=== PATIENT | male | born 1975 | race American Indian/Alaskan Native ===

== ENCOUNTER 2017-01-09 14:10 | Emergency (ER) | payer MEDICAID, MEDICARE, OTHER ==
[2017-01-09 14:11] VITALS: BMI 27.1
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
[2017-01-09 15:01] VITALS: BP 110/75; PULSE 83; RESP 18; TEMP 98.1; O2SAT 97
== END 2017-01-09 15:35 | disposition home or self-care (01) ==
LOC: ED 14:10
DX: F25.9 Schizoaffective disorder, unspecified (principal); F19.10 Other psychoactive substance abuse, uncomplicated

== ENCOUNTER 2017-12-16 22:17 | Emergency (ER) | payer MEDICAID, MEDICARE, OTHER ==
[2017-12-16 22:17] VITALS: BMI 27.1
[2017-12-16 22:29] VITALS: RESP 18; TEMP 98.1
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
[2017-12-16 23:35] LABS: BASO # 0.02 K/mm3 (0.0-2.0); BASO % 0.3 % (0.0-3.0); EOS % 0.3 % (1.5-5.0); GRAN # 4.03 (1.4-6.5); GRAN % 54.9 % (50.0-68.0); HEMOGLOBIN 15.7 g/dL (14.0-18.0); LYMPH # 2.6 (1.2-3.4); MEAN CORPUSCULAR HEMOGLOBIN 27.4 pg (25.0-35.0); MEAN PLATELET VOLUME 11.1 fl (7.0-11.0); MONO # 0.7 (0.1-0.6); MONO % 9.5 % (1.0-6.0); RBC 5.74 10^6/uL (3.5-6.1); RED CELL DISTRIBUTION WIDTH 13.7 % (11.5-14.5); WHITE BLOOD COUNT 7.3 10^3/ul (4.5-11.0)
[2017-12-16 23:48] LABS: ACETAMINOPHEN < 10.0 ug/ml (10.0-20.0); SALICYLATE < 1 mg/dL (2.0-20.0)
[2017-12-16 23:49] LABS: ALB/GLOB RATIO 1.2 (1.1-1.8); ALBUMIN 4.7 g/dL (3.0-4.8); ALT/SGPT 34 U/L (7-56); AST/SGOT 37 U/L (17-59); BLOOD UREA NITROGEN 12 mg/dL (7-21); GFR AFRICAN-AMERICAN > 60; GFR NON-AFRICAN AMERICAN > 60
[2017-12-17 00:44] LABS: URINE BILIRUBIN NEGATIVE (NEGATIVE); URINE BLOOD NEGATIVE (NEGATIVE); URINE GLUCOSE (UA) NEGATIVE (NEGATIVE); URINE LEUKOCYTE ESTERASE NEGATIVE Leu/uL (NEGATIVE); URINE PROTEIN NEGATIVE mg/dL (<30 mg/dL); URINE UROBILINOGEN 0.2 E.U./dL (<1 E.U./dL)
[2017-12-17 00:50] LABS: URINE APPEARANCE CLEAR (CLEAR); URINE COLOR YELLOW (YELLOW)
[2017-12-17 06:15] VITALS: BP 132/88; PULSE 89
[2017-12-17 06:17] VITALS: O2SAT 99
--- NOTE | 2017-12-17 07:31 | RAD ---
Date of service: 12/17/2017 HISTORY: medical screening COMPARISON: No prior. FINDINGS: LUNGS: No active pulmonary disease. PLEURA: No significant pleural effusion identified, no pneumothorax apparent. CARDIOVASCULAR: Normal. OSSEOUS STRUCTURES: No significant abnormalities. VISUALIZED UPPER ABDOMEN: Normal. OTHER FINDINGS: None. IMPRESSION: No active disease.
--- NOTE | 2017-12-17 09:36 | CARD ---
APPROVED REPORT Date of service: 12/16/2017 EKG Measurement Heart [id number] <Conclusion> Normal sinus rhythm Normal ECG
== END 2017-12-17 06:15 | disposition home or self-care (01) ==
LOC: ED 22:17
DX: F25.9 Schizoaffective disorder, unspecified (principal); F31.9 Bipolar disorder, unspecified
CPT/HCPCS: 71045; 80053; 81003; 85025; 90791; 93005; 99283; G0480

== ENCOUNTER 2018-01-18 15:55 | Emergency (ER) | payer OTHER ==
[2018-01-18 15:55] VITALS: BMI 27.1
[2018-01-18 16:29] VITALS: TEMP 99
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
--- NOTE | 2018-01-18 18:02 | RAD ---
Date of service: 01/18/2018 PROCEDURE: Radiographs of the Lumbar Spine. HISTORY: back pain COMPARISON: No prior. FINDINGS: BONES: Normal alignment. No listhesis. No fracture. DISC SPACES: Mild narrowing of the disc is space at L4-L5 and L5-S1 noted. Mild degenerative changes at L4-L5 are also noted. OTHER FINDINGS: None. IMPRESSION: No evidence of acute fracture or subluxation. Mild spondylosis at the lower lumbar spine associated with mild narrowing of the intervertebral disc spaces of L4-L5 and L5-S1.
[2018-01-18 18:42] VITALS: BP 144/87; PULSE 86; RESP 16; O2SAT 99
== END 2018-01-18 18:44 | disposition home or self-care (01) ==
LOC: ED 15:55
DX: M54.30 Sciatica, unspecified side (principal); F20.9 Schizophrenia, unspecified; F17.210 Nicotine dependence, cigarettes, uncomplicated
CPT/HCPCS: 72110; 96372; 99283; J1885

== ENCOUNTER 2018-02-26 09:39 | Emergency (ER) | payer MEDICAID, OTHER ==
[2018-02-26 10:08] VITALS: BMI 28.5
[2018-02-26 10:10] VITALS: TEMP 98.5
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
[2018-02-26 12:52] VITALS: BP 131/77; PULSE 89; RESP 16; O2SAT 99
== END 2018-02-26 12:16 | disposition home or self-care (01) ==
LOC: ED 09:39
DX: Z76.0 Encounter for issue of repeat prescription (principal); F99 Mental disorder, not otherwise specified

== ENCOUNTER 2018-03-06 08:49 | Emergency (ER) | payer OTHER, MEDICAID ==
[2018-03-06 08:57] VITALS: BMI 32.5
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
[2018-03-06 09:44] LABS: BASO # 0.02 K/mm3 (0.0-2.0); BASO % 0.3 % (0.0-3.0); EOS % 0.5 % (1.5-5.0); GRAN # 3.75 (1.4-6.5); GRAN % 64.9 % (50.0-68.0); HEMOGLOBIN 13.5 g/dL (14.0-18.0); LYMPH # 1.4 (1.2-3.4); LYMPH % 23.4 % (22.0-35.0); MEAN CELL VOLUME 80.2 fl (80.0-105.0); MEAN CORPUSCULAR HEMOGLOBIN 27.6 pg (25.0-35.0); MEAN CORPUSCULAR HGB CONC 34.4 g/dl (31.0-37.0); MEAN PLATELET VOLUME 10.1 fl (7.0-11.0); MONO # 0.6 (0.1-0.6); MONO % 10.9 % (1.0-6.0); RBC 4.89 10^6/uL (3.5-6.1); RED CELL DISTRIBUTION WIDTH 14.2 % (11.5-14.5); WHITE BLOOD COUNT 5.8 10^3/ul (4.5-11.0)
[2018-03-06 09:53] LABS: ALB/GLOB RATIO 1.2 (1.1-1.8); ALBUMIN 3.7 g/dL (3.0-4.8); BLOOD UREA NITROGEN 14 mg/dL (7-21); CALCIUM 8.9 mg/dL (8.4-10.5); GFR NON-AFRICAN AMERICAN > 60
[2018-03-06 09:54] LABS: ACETAMINOPHEN < 10.0 ug/ml (10.0-20.0); SALICYLATE < 1 mg/dL (2.0-20.0)
[2018-03-06 09:55] LABS: ALT/SGPT 58 U/L (7-56); AST/SGOT 126 U/L (17-59)
[2018-03-06] MEDS ORDERED: Sodium Chloride 0.9% 2,000 ML IV ONE (10:11)
[2018-03-06 10:26] LABS: CK MB% 0.4 % (2.5-3.0); CK-MB 11.9 ng/mL (0.0-3.6)
--- NOTE | 2018-03-06 10:30 | RAD ---
Date of service: 03/06/2018 HISTORY: pes COMPARISON: 12/17/2017. FINDINGS: LUNGS: No active pulmonary disease. PLEURA: No significant pleural effusion identified, no pneumothorax apparent. CARDIOVASCULAR: No atherosclerotic calcification present No radiographic findings to suggest acute or significant cardiovascular disease. OSSEOUS STRUCTURES: No significant abnormalities. VISUALIZED UPPER ABDOMEN: Normal. OTHER FINDINGS: None. IMPRESSION: No active disease. No significant interval change compared to the prior examination(s).
[2018-03-06 10:58] LABS: URINE BILIRUBIN NEGATIVE (NEGATIVE); URINE BLOOD NEGATIVE (NEGATIVE); URINE GLUCOSE (UA) NEGATIVE (NEGATIVE); URINE LEUKOCYTE ESTERASE NEGATIVE Leu/uL (NEGATIVE); URINE PROTEIN NEGATIVE mg/dL (<30 mg/dL)
[2018-03-06 10:59] LABS: URINE APPEARANCE CLEAR (CLEAR); URINE COLOR YELLOW (YELLOW)
[2018-03-06 11:20] LABS: BARBITURATES, UR NEGATIVE (NEGATIVE); BENZODIAZEPINES, UR NEGATIVE (NEGATIVE); OPIATES, UR NEGATIVE (NEGATIVE); PHENCYCLIDINE, UR POSITIVE (NEGATIVE)
[2018-03-06 11:56] VITALS: BP 130/80; PULSE 91; RESP 18; TEMP 98; O2SAT 98
--- NOTE | 2018-03-06 15:13 | CARD ---
APPROVED REPORT Date of service: 03/06/2018 EKG Measurement Heart [id number] <Conclusion> Normal sinus rhythm Normal ECG
== END 2018-03-06 11:56 | disposition left against medical advice (07) ==
LOC: ED 08:49
DX: F25.0 Schizoaffective disorder, bipolar type (principal); M62.82 Rhabdomyolysis; F16.20 Hallucinogen dependence, uncomplicated; F16.99 Hallucinogen use, unspecified with unspecified hallucinogen-induced disorder; F17.210 Nicotine dependence, cigarettes, uncomplicated; Z59.0 Homelessness
CPT/HCPCS: 71045; 80053; 81003; 82550; 82553; 83735; 85025; 90791; 93005; 99282; G0480; J7040

== ENCOUNTER 2018-03-12 23:21 | Emergency (ER) | payer OTHER ==
[2018-03-13 00:38] VITALS: BMI 25.8
[2018-03-13 01:05] VITALS: BP 133/73; PULSE 85; RESP 16; TEMP 98.5; O2SAT 100
== END 2018-03-13 04:29 | disposition left against medical advice (07) ==
LOC: ED 23:21
DX: Z02.89 Encounter for other administrative examinations (principal)

== ENCOUNTER 2018-04-12 11:14 | Emergency (ER) | payer MEDICAID, OTHER ==
[2018-04-12 11:19] VITALS: BMI 24.4
[2018-04-12 11:23] VITALS: BP 136/84; PULSE 76; RESP 18; TEMP 98.6; O2SAT 99
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
== END 2018-04-12 11:47 | disposition home or self-care (01) ==
LOC: ED 11:14
DX: Z76.0 Encounter for issue of repeat prescription (principal); F20.9 Schizophrenia, unspecified

== ENCOUNTER 2018-04-24 12:10 | Emergency (ER) | payer OTHER ==
[2018-04-24 12:10] VITALS: BMI 24.4
[2018-04-24 12:27] VITALS: BP 132/89; PULSE 78; RESP 18; TEMP 98.2; O2SAT 98
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
== END 2018-04-24 13:12 | disposition home or self-care (01) ==
LOC: ED 12:10
DX: Z04.89 Encounter for examination and observation for other specified reasons (principal); F41.9 Anxiety disorder, unspecified; F31.9 Bipolar disorder, unspecified; F20.9 Schizophrenia, unspecified

== ENCOUNTER 2018-05-01 23:17 | Emergency (ER) | payer OTHER ==
[2018-05-01 23:18] VITALS: BMI 24.4
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
[2018-05-01 23:31] VITALS: BP 141/69; PULSE 84; RESP 18; TEMP 97.7; O2SAT 97
== END 2018-05-01 23:55 | disposition home or self-care (01) ==
LOC: ED 23:17
DX: G89.29 Other chronic pain (principal); M54.5 Low back pain; F17.210 Nicotine dependence, cigarettes, uncomplicated; F20.9 Schizophrenia, unspecified

== ENCOUNTER 2018-05-03 23:11 | Emergency (ER) | payer OTHER ==
[2018-05-03 23:11] VITALS: BMI 24.4
== END 2018-05-03 23:21 | disposition left against medical advice (07) ==
LOC: ED 23:11
DX: Z02.89 Encounter for other administrative examinations (principal); M54.9 Dorsalgia, unspecified

== ENCOUNTER 2018-06-17 06:20 | Emergency (ER) | payer OTHER, MEDICARE ==
[2018-06-17 06:20] VITALS: BMI 24.4
[2018-06-17 07:22] LABS: BASO # 0.02 K/mm3 (0.0-2.0); BASO % 0.4 % (0.0-3.0); EOS % 0.9 % (1.5-5.0); HEMOGLOBIN 14.4 g/dL (14.0-18.0); LYMPH # 1.4 (1.2-3.4); LYMPH % 31.6 % (22.0-35.0); MEAN CELL VOLUME 80.5 fl (80.0-105.0); MEAN CORPUSCULAR HEMOGLOBIN 27.5 pg (25.0-35.0); MEAN CORPUSCULAR HGB CONC 34.1 g/dl (31.0-37.0); MEAN PLATELET VOLUME 10.3 fl (7.0-11.0); MONO # 0.7 (0.1-0.6); MONO % 15.6 % (1.0-6.0); RBC 5.24 10^6/uL (3.5-6.1); RED CELL DISTRIBUTION WIDTH 14.1 % (11.5-14.5); WHITE BLOOD COUNT 4.6 10^3/uL (4.5-11.0)
[2018-06-17 07:27] VITALS: RESP 18; TEMP 98.2
[2018-06-17 07:35] LABS: ACETAMINOPHEN < 10.0 ug/ml (10.0-20.0); ALB/GLOB RATIO 1.1 (1.1-1.8); ALBUMIN 4.2 g/dL (3.0-4.8); ALT/SGPT 60 U/L (7-56); AST/SGOT 68 U/L (17-59); BLOOD UREA NITROGEN 14 mg/dL (7-21); CALCIUM 9.5 mg/dL (8.4-10.5); GFR NON-AFRICAN AMERICAN > 60; SALICYLATE < 1 mg/dL (2.0-20.0)
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
--- NOTE | 2018-06-17 07:57 | RAD ---
Date of service: 06/17/2018 HISTORY: psych clearance COMPARISON: No prior. FINDINGS: LUNGS: No active pulmonary disease. Mid right lateral pulmonary granulomata again appreciated. PLEURA: No significant pleural effusion identified, no pneumothorax apparent. CARDIOVASCULAR: No aortic atherosclerotic calcification present. Normal cardiac size. No pulmonary vascular congestion. OSSEOUS STRUCTURES: No significant abnormalities. VISUALIZED UPPER ABDOMEN: Normal. OTHER FINDINGS: None. IMPRESSION: No interval acute cardiopulmonary disease appreciated.
--- NOTE | 2018-06-17 09:52 | CARD ---
APPROVED REPORT Date of service: 06/17/2018 EKG Measurement Heart [id number] <Conclusion> Normal sinus rhythm High Voltage - LVH.
[2018-06-17 10:04] VITALS: BP 121/77; PULSE 82; O2SAT 99
== END 2018-06-17 10:06 | disposition home or self-care (01) ==
LOC: ED 06:20
DX: F19.10 Other psychoactive substance abuse, uncomplicated (principal); F29 Unspecified psychosis not due to a substance or known physiological condition; F17.210 Nicotine dependence, cigarettes, uncomplicated
CPT/HCPCS: 71045; 80053; 85025; 93005; 99283; G0480

== ENCOUNTER 2018-07-10 10:18 | Emergency (ER) | payer MEDICARE, OTHER ==
[2018-07-10 10:27] VITALS: RESP 18; O2SAT 98
[2018-07-10] MEDS ORDERED: TDAP Vaccine 0.5 mL Syr IM ONE (10:30)
[2018-07-10] MEDS ORDERED: Lidocaine 1% Inj (20ml) IJ STA (10:30)
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
[2018-07-10 10:39] VITALS: BMI 44.7
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
[2018-07-10] MEDS ORDERED: Bacitracin 500 Units/gm Oint Foilpak UD TOP ONE (13:08)
[2018-07-10 13:17] VITALS: BP 140/78; PULSE 80; TEMP 98
== END 2018-07-10 13:17 | disposition home or self-care (01) ==
LOC: ED 10:18
DX: S01.81XA Laceration without foreign body of other part of head, initial encounter (principal); Y04.0XXA Assault by unarmed brawl or fight, initial encounter; F17.210 Nicotine dependence, cigarettes, uncomplicated; F20.9 Schizophrenia, unspecified; Z23 Encounter for immunization

== ENCOUNTER 2018-07-14 11:17 | Emergency (ER) | payer OTHER ==
[2018-07-14 11:17] VITALS: BMI 44.7
== END 2018-07-14 11:54 | disposition left against medical advice (07) ==
LOC: ED 11:17
DX: Z02.89 Encounter for other administrative examinations (principal); Z00.00 Encounter for general adult medical examination without abnormal findings

== ENCOUNTER 2018-07-26 00:18 | Inpatient (IN) | payer OTHER ==
[2018-07-26 00:48] VITALS: BMI 33.5
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
[2018-07-26 02:31] LABS: HEMOGLOBIN 13.5 g/dL (14.0-18.0); MEAN CELL VOLUME 81.1 fl (80.0-105.0); MEAN CORPUSCULAR HEMOGLOBIN 27.2 pg (25.0-35.0); MEAN CORPUSCULAR HGB CONC 33.5 g/dl (31.0-37.0); MEAN PLATELET VOLUME 10.5 fl (7.0-11.0); RBC 4.97 10^6/uL (3.5-6.1); RED CELL DISTRIBUTION WIDTH 14.1 % (11.5-14.5); WHITE BLOOD COUNT 7.8 10^3/uL (4.5-11.0)
[2018-07-26 02:49] LABS: ALB/GLOB RATIO 1.1 (1.1-1.8); ALT/SGPT 41 U/L (7-56); AST/SGOT 53 U/L (17-59); BLOOD UREA NITROGEN 18 mg/dL (7-21); CALCIUM 9.1 mg/dL (8.4-10.5); GFR NON-AFRICAN AMERICAN > 60
--- NOTE | 2018-07-26 07:01 | ED PDOC ---
Physical Exam Vital Signs Temp Pulse Resp BP Pulse Ox 07/26/18 03:00 97.9 F 89 16 138/72 95 07/26/18 00:48 98.1 F 91 H 18 146/80 95 Medical Decision Making ED Course and Treatment: 07/26/18 07:[address] Eaton with patient pending face to face e valuation by Dr. Lynn(psychiatry). 07/26/18 08:54 Dr. Lynn completes her evaluation of patient and accepts patient onto inpatient psychiatric admission under schizoaffective disorder. - Lab Interpretations Lab Results: Total Bilirubin 0.4 mg/dL (0.2-1.3) 07/26/18 02:18 AST 53 U/L (17-59) 07/26/18 02:18 ALT 41 U/L (7-56) 07/26/18 02:18 Alkaline Phosphatase 98 U/L (38-126) 07/26/18 02:18 Total Protein 7.6 g/dL (5.8-8.3) 07/26/18 02:18 Albumin 4.0 g/dL (3.0-4.8) 07/26/18 02:18 Globulin 3.6 gm/dL 07/26/18 02:18 Albumin/Globulin Ratio 1.1 (1.1-1.8) 07/26/18 02:18 - RAD Interpretation Radiology Orders: 07/26/18 01:32 CHEST PORTABLE [RAD] Stat Disposition/Present on Arrival - Present on Arrival Any Indicators Present on Arrival: No History of DVT/PE: No History of Uncontrolled Diabetes: No Urinary Catheter: No History of Decub. Ulcer: No History Surgical Site Infection Following: None - Disposition Have Diagnosis and Disposition been Completed?: Yes Diagnosis: Schizoaffective disorder, bipolar type, Substance-induced psychotic disorder Disposition: HOSPITALIZED Disposition Time: 08:52 Patient Plan: Admission Patient Problems: Current Active Problems Problem Status Onset Schizoaffective disorder, bipolar type Acute Condition: FAIR Forms: [employer] (Ugandan)
[2018-07-26] MEDS: OLANZapine 5 mg Disintegrating Tab PO SCH ×3 (08:52→21:29)
[2018-07-26 09:18] LABS: BARBITURATES, UR NEGATIVE (NEGATIVE); BENZODIAZEPINES, UR NEGATIVE (NEGATIVE); OPIATES, UR NEGATIVE (NEGATIVE); PHENCYCLIDINE, UR POSITIVE (NEGATIVE)
--- NOTE | 2018-07-26 09:36 | RAD ---
Date of service: 07/26/2018 HISTORY: Medical clearance COMPARISON: Comparison chest 06/17/2018. FINDINGS: LUNGS: Minor bibasilar atelectasis PLEURA: No significant pleural effusion identified, no pneumothorax apparent. CARDIOVASCULAR: No aortic atherosclerotic calcification present. Heart size upper limits of normal. no pulmonary vascular congestion. OSSEOUS STRUCTURES: No significant abnormalities. VISUALIZED UPPER ABDOMEN: Normal. OTHER FINDINGS: None. IMPRESSION: Minor bibasilar atelectasis.
--- NOTE | 2018-07-26 09:43 | CARD ---
APPROVED REPORT Date of service: 07/26/2018 EKG Measurement Heart [id number] <Conclusion> Normal sinus rhythm Normal ECG
[2018-07-26 10:16] VITALS: O2SAT 97
[2018-07-26] MEDS ORDERED: Alum-Mag Hydrox-Simethicone Susp (30 mL) PO PRN (12:04)
[2018-07-26] MEDS ORDERED: Magnesium Hydroxide Susp 30 ml UD PO PRN (12:05)
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
--- NOTE | 2018-07-26 15:46 | CON ---
DATE OF CONSULTATION: 07/26/2018 HISTORY OF PRESENT ILLNESS: In short, the patient is a 43-year-old -[place] male with a reported history of schizoaffective disorder, history of polysubstance abuse and dependence. The patient had multiple hospitalizations into the psychiatric inpatient unit, most recent was in 2017, under Dr. Chun's service. The patient came by himself to the emergency room overnight requesting psychiatric evaluation. In the emergency room, the patient presented to be bizarre, disorganized, irrational. The patient was refusing to give urinalysis. The patient was requesting to talk to this typewriter ribbon winder and said that he will provide history only to this typewriter ribbon winder. The patient was started on one to one by psychiatrist on-call. This typewriter ribbon winder saw the patient in the emergency room during morning round. This typewriter ribbon winder is very familiar with this patient from the previous multiple psychiatric admissions. The patient has chronic noncompliance with the medications and followup appointments. The patient has a history of incarcerations. The patient has history of being on probation and was on parole and had telecommunications officer in the past. The patient was doing well on Zyprexa in the past as well as mood stabilizers. The patient presented to be disorganized in the emergency room, flight of ideas. The patient was not able to provide a decent history. The patient was saying that he is changing his language in order for this typewriter ribbon winder to understand him better. The patient was saying fragments of Serbian, Kiswahili. The patient was saying Talha Win, like this typewriter ribbon winder is aware that the patient cannot speak Serbian or Kiswahili. The patient was saying then " , I can see shadows," then started to sing loudly in the emergency room. The patient agreed to give urine sample, and at present moment, urine drug screen is pending. The patient said that he lives in [place], and he came over way to come here because he feels comfortable in [place]. The patient said that he was not taking any medications for the past year or so. The patient said "you can give me any medications what you were giving me before, I will take it." At the same time, the patient was screaming out loudly alternating with singing song. PHYSICAL EXAMINATION: VITAL SIGNS: Reviewed. Temperature 97.9, pulse is 89, blood pressure 138/72, respirations 16, oxygen saturation is 95. MEDICATIONS: Reviewed. This typewriter ribbon winder is going to provide Zyprexa to him. LABORATORY DATA: Labs reviewed. Toxicology, alcohol negative. PREVIOUS HISTORY: The patient was in [place] on 07/21/2018 for medical clearance. The patient was under back then. The patient was in [facility] Room on 07/14/2018 for substance abuse, and before that, on 07/14/2018, the patient was in the emergency room here in [place]. MENTAL STATUS EXAMINATION: As this typewriter ribbon winder mentioned above, the patient presented to be disorganized, loud, tall muscle build gentleman, -[place], very poor hygiene. The patient is malodorous. The patient has multiple tattoos on his body. Intense eye contact. Speech was overproductive, loud. Thought process disorganized. Thought content, the patient presented to be psychotic, agitated, loud, obviously is seeing things and hearing things, disorganized thoughts and behavior. The patient denied thoughts of harming himself or others. Denied intent or plan. Insight and judgment seemed to be very limited. Impulses are unpredictable. IMPRESSION: The patient has a history of schizoaffective disorder, polysubstance abuse and dependence. The patient has history of PCP use. PLAN: This typewriter ribbon winder will start Zyprexa. From the emergency room, the patient took medication from the nurse. Urine drug screen needs to be obtained, and collateral information should be obtained from the patient's mother. The patient said that he has an apartment [address], and he came from [place]. Meanwhile, the patient signed consent for treatment. This typewriter ribbon winder will resume medications, most likely it would be Zyprexa as well as Depakote and small dose of benzodiazepines with a plan to wean it off. The patient will be admitted for further evaluation and observation. Should you have any questions give me a call back. Leah Dorman MD
[2018-07-26] MEDS: Divalproex 500 mg DR(BID formulation) PO SCH ×2 (18:29→21:29)
[2018-07-27 08:31] LABS: GLUCOSE,FASTING 92 mg/dL (65-110); HDL CHOLESTEROL 41 mg/dL (29-60)
[2018-07-27 08:44] LABS: LDL CHOLESTEROL 68 mg/dL (0-129)
[2018-07-27 08:48] LABS: FREE T4 1.07 ng/dL (0.78-2.19)
[2018-07-27] MEDS: OLANZapine 5 mg Disintegrating Tab PO SCH ×3 (09:41→21:42)
[2018-07-27] MEDS: Divalproex 500 mg DR(BID formulation) PO SCH ×3 (09:42→21:41)
[2018-07-28] MEDS: Divalproex 500 mg DR(BID formulation) PO SCH ×3 (08:28→21:57)
[2018-07-28] MEDS: OLANZapine 5 mg Disintegrating Tab PO SCH ×3 (08:28→21:57)
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
--- NOTE | 2018-07-28 13:53 | PCM.PYCHPN ---
Psychiatric Progress Note - Psychiatric Progress Note Patient seen today, length of contact: 30min Patient Chief Complaint: "I am just fine, I am alright,yeeyad yea, you can let me go home...I am alright I can move around....." Problems Identified/Issues Discussed: Risk/benefits and alternatives of medications discussed, suicide/ homicide prevention, past psychiatric h/o, current psychiatric symptoms, medical problems, risk/benefits and alternatives of medications, medications compliance, coping strategies, substance abuse h/o, relapse prevention, importance of follow up with psychiatrist and therapist, discharge plan. Medical Problems: Patient denied any issues, patient denied any pain or any concerns. pt was medically cleared from the ED. Diagnostic Results: 07/26/18 02:18 07/26/18 02:18 Lab Results 07/27/18 08:00: RPR Nonreactive 07/27/18 08:00: Free T4 1.07, TSH 3rd Generation 0.38 L 07/27/18 08:00: Fasting Glucose 92, Triglycerides 50, Cholesterol 135, LDL Cholesterol Direct 68, HDL Cholesterol 41 07/26/18 08:50: Urine Opiates Screen Negative, Urine Methadone Screen Negative, Ur Barbiturates Screen Negative, Ur Phencyclidine Scrn Positive H, Ur Amphetamines Screen Negative, U Benzodiazepines Scrn Negative, U Oth Cocaine Metabols Negative, U Cannabinoids Screen Negative 07/26/18 02:18: WBC 7.8 D, RBC 4.97, Hgb 13.5 L, Hct 40.3 L, MCV 81.1, MCH 27.2, MCHC 33.5, RDW 14.1, Plt Count 204, MPV 10.5 07/26/18 02:18: Alcohol, Quantitative < 10 07/26/18 02:18: Sodium 137, Potassium 4.2, Chloride 105, Carbon Dioxide 25, Anion Gap 11, BUN 18, Creatinine 0.7 L, Est GFR ( Amer) > 60, Est GFR (Non-Af Amer) > 60, Random Glucose 93, Calcium 9.1, Total Bilirubin 0.4, AST 53, ALT 41, Alkaline Phosphatase 98, Total Protein 7.6, Albumin 4.0, Globulin 3.6, Albumin/Globulin Ratio 1.1 Vital Signs Temp Pulse Pulse Pulse Resp BP Pulse Ox 07/26/18 16:00 74 149/85 07/26/18 12:00 87 87 18 07/26/18 10:14 98 F 82 18 130/66 97 07/26/18 10:00 98.2 F 87 18 113/71 07/26/18 09:25 98.0 F 76 18 135/69 96 07/26/18 03:00 97.9 F 89 16 138/72 95 07/26/18 00:48 98.1 F 91 H 18 146/80 95 DSM 5 Symptoms Update: Shortly patient is a 43-year old -[place] male with reported history of schizoaffective disorder, polysubstance abuse and dependence, history of agitated and aggressive behavior, history of incarcerations, chronic noncompliance with medications and follow-up appointments, patient brought himself to the hospital looking for help for his psychosis. Patient was seen by this medical writer in the emergency room, patient presented to be disorganized, psychotic, poor hygiene, patient said that he was not able taking any medications for past year, patient was willing to get treatment, willing to sign consent, willing to be on medications. Patient was seen at the treatment team meeting, patient presented to be with some improvement of personal hygiene, after strong encouragement from the staff, finally patient took shower. Patient presented somewhat better to compare with the emergency room evaluation, patient said that "I am all right, I can move around", patient reported that he wants to be discharged, this medical writer educated patient about 48-hour notice, patient submitted today, patient denied thoughts of harming self or others. As per nursing report patient vomited yesterday at the morning time, we will start Zofran as needed. Yesterday patient called his mother, was yelling/screaming/cursing patient needed to be medicated with Haldol and Ativan. As per staff patient is disorganized, grandiose, delusional. Patient denied hearing voices, denied seeing things denied paranoid ideation, but still patient thought process is disorganized. Patient is compliant with her medications, tolerated them well, no side effects observed or reported, aims 0, no EPS. Patient was asking this medical writer to resume Xanax, this medical writer declined that request. DSM 5 Diagnosis: pcp induced psychosis schizoaffective disorder PCP-induced organic mental disorder Polysubstance dependence including opioid type drug with complication Medication Change: Yes Medical Record Reviewed: Yes Consults ordered or reviewed: Patient was seen by medical team in the emergency room Mental Status Examination - Cognitive Function Orientation: Person, Place, Situation Memory: Impaired (Chronic) Attention: Poor Concentration: Poor Association: Loose Fund of Knowledge: Poor (Baseline) - Mood Mood: Depressed ("I am fine, I can move around") - Affect Affect: Constricted - Formal Thought Process Formal Thought Process: Loosening of associations, Circumstantial - Suicidal Ideation Suicidal Ideation: No - Homicidal Ideation Homicidal Ideation: No Goal/Treatment Plan - Goal/Treatment Plan Need for Continued Stay: Remain at risks for inpatient hospitalization, Severe depression anxiety, Discharge may exacerbated symptoms, Severe functional impairment Progress Toward Problem(s) and Goals/Treatment Plan: Milieu/structure/supportive therapy Medical consult if needs Zyprexa 5 mg 3 times a day for psychosis Haldol PRN Ativan PRN Trazodone 100mg hs for depression and insomnia will monitor closely SW evaluation Family involvement Follow up on labs Will monitor closely Pt was educated about risk/benefits and alternatives of medications, coping strategies (safety plan, suicide prevention), relapse prevention, importance of follow up with psychiatrist and therapist, stay away from drugs/alcohol/smoking pt signed 48hr notice pt doesn't meet a criteria for screening will observe for at least 24hrs Estimated Date of D/C: 07/30/18
[2018-07-29 07:06] VITALS: BP 100/66; PULSE 86; RESP 20; TEMP 98.4
[2018-07-29] MEDS: Divalproex 500 mg DR(BID formulation) PO SCH (08:20)
[2018-07-29] MEDS: OLANZapine 5 mg Disintegrating Tab PO SCH (08:21)
--- NOTE | 2018-07-30 08:52 | PCM.PYCHDC ---
Mental Status Examination - Mental Status Examination Orientation: Person, Place, Situation Memory: Impaired (Chronic) Mood: Neutral Affect: Constricted (But more reactive and) Speech: Appropriate (Poverty of speech) Attention: Poor (Baseline) Concentration: Poor (baseline) Association: Loose (Baseline) Fund of Knowledge: Poor (Baseline) Formal Thought Process: Circumstantial, Other (Blood process is disorganized due to chronic use of PCP and organic changes of patient's brain) Description of patient's judgement and insight: Pt has somewhat improved insight into mental and medical illness, pt was compliant with medications and unit rules and regulations, no behavioral incidents, no agitation, no aggression. Psychotic Thoughts and Behaviors: Pt denied v/a/t hallucinations, denied paranoid ideations, pt does not appear to be psychotic, and thought process is goal directed. Suicidal Ideation: No Current Homicidal Ideation?: No Plan: pt adamantly denied thoughts of harming self or others denied intent or plan. Discharge Summary - Discharge Note Reason for Hospitalization: Patient was admitted for evaluation and stabilization of disorganized thoughts and behavior, psychosis. Psychiatric History (includes Medical, Family, Personal Hx): See HPI Laboratory Data: 07/26/18 02:18 07/26/18 02:18 Lab Results 07/27/18 08:00: RPR Nonreactive 07/27/18 08:00: Free T4 1.07, TSH 3rd Generation 0.38 L 07/27/18 08:00: Fasting Glucose 92, Triglycerides 50, Cholesterol 135, LDL Cholesterol Direct 68, HDL Cholesterol 41 07/26/18 08:50: Urine Opiates Screen Negative, Urine Methadone Screen Negative, Ur Barbiturates Screen Negative, Ur Phencyclidine Scrn Positive H, Ur Amphetamines Screen Negative, U Benzodiazepines Scrn Negative, U Oth Cocaine Metabols Negative, U Cannabinoids Screen Negative 07/26/18 02:18: WBC 7.8 D, RBC 4.97, Hgb 13.5 L, Hct 40.3 L, MCV 81.1, MCH 27.2, MCHC 33.5, RDW 14.1, Plt Count 204, MPV 10.5 07/26/18 02:18: Alcohol, Quantitative < 10 07/26/18 02:18: Sodium 137, Potassium 4.2, Chloride 105, Carbon Dioxide 25, Anion Gap 11, BUN 18, Creatinine 0.7 L, Est GFR ( Amer) > 60, Est GFR (Non-Af Amer) > 60, Random Glucose 93, Calcium 9.1, Total Bilirubin 0.4, AST 53, ALT 41, Alkaline Phosphatase 98, Total Protein 7.6, Albumin 4.0, Globulin 3.6, Albumin/Globulin Ratio 1.1 Vital Signs Temp Pulse Pulse Pulse Resp BP Pulse Ox 07/29/18 07:00 98.4 F 86 20 100/66 07/26/18 16:00 74 149/85 07/26/18 12:00 87 87 18 07/26/18 10:14 98 F 82 18 130/66 97 07/26/18 10:00 98.2 F 87 18 113/71 07/26/18 09:25 98.0 F 76 18 135/69 96 07/26/18 03:00 97.9 F 89 16 138/72 95 07/26/18 00:48 98.1 F 91 H 18 146/80 95 Consultations:: List each consultation separately and include: 1. Reason for request. 2. Findings. 3. Follow-up Consultations: Patient was seen by medical team in the emergency room Patient did not have any physical complaints Summary of Hospital Course include:: 1. Description of specific treatment plan utilized for patients during their course of treatmen. 2. Summarize the time- course for resolution of acute symptoms and/or regressed behaviors. 3. Describe issues identified and worked on during hospitalization. 4. Describe medication utilized. 5. Describe medical problems identified and treated. 6. Reassessment of suicide risk Summary of Hospital Course: Shortly patient is a 43-year old -[place] male with reported history of schizoaffective disorder, polysubstance abuse and dependence, history of agitated and aggressive behavior, history of incarcerations, chronic noncompliance with medications and follow-up appointments, patient brought himself to the hospital looking for help for his psychosis. Patient was seen by this automotive service writer in the emergency room, patient presented to be disorganized, psychotic, poor hygiene, patient said that he was not able taking any m edications for past year, patient was willing to get treatment, willing to sign consent, willing to be on medications. This automotive service writer is very familiar with this patient from multiple admissions to the psychiatric inpatient unit, in the emergency room patient refused to talk to nobody about this automotive service writer, please see consultation note for more detailed information. at the time of admission no meaningful conversation possible due to psychosis. pt was relatively stabilized on the following meds: zyprexa 5mg po tid for psychosis depakote 500mg po tid for mood stabilization trazodone 100mg po hs for depression/insomnia pt submitted 48hr notice 07/28/18, pt was observed in the unit for 72 hrs, pt did not have any agitation/aggression/pt was compliant with medications, still psychotic, disorganized, but no behavioral issues, pt was socially appropriate. pt was advised to rescind 48hr notice, but pt refused to do so, pt had a capacity to be d/c AMA, pt did not meet a criteria for screening, was discharged AMA. At the time of the discharge patient pose no imminent danger to self or others, will be following up with outpatient clinic of his choice, pt is very familiar of the programs in the community, pt had a capacity to arrange it himself. It is a patient responsibility to follow up with outpatient clinic, PMD as well as specialists. In case patient will need to obtain results of studies pending at discharge, patient was provided with contact information of Psychiatric Inpatient unit [phone] as well as Medical Record Department [phone], as well as [facility] team [phone]. pt denied smoking Naltrexone treatment not indicated for PCP use Counseling about PCP cessation provided AA meetings treatment program information was provided by the pt was provided with prescriptions (see medication reconciliation form) Pt was educated about safety plan in case of worsening of symptoms or in case of suicidal or homicidal ideation call 911 or go to the nearest ER, also was educated to take meds as prescribed and stay away from drugs, pt verbalized understanding. 07/26/18 02:18 07/26/18 02:18 Lab Results 07/27/18 08:00: RPR Nonreactive 07/27/18 08:00: Free T4 1.07, TSH 3rd Generation 0.38 L 07/27/18 08:00: Fasting Glucose 92, Triglycerides 50, Cholesterol 135, LDL Cholesterol Direct 68, HDL Cholesterol 41 07/26/18 08:50: Urine Opiates Screen Negative, Urine Methadone Screen Negative, Ur Barbiturates Screen Negative, Ur Phencyclidine Scrn Positive H, Ur Amphetamines Screen Negative, U Benzodiazepines Scrn Negative, U Oth Cocaine Metabols Negative, U Cannabinoids Screen Negative 07/26/18 02:18: WBC 7.8 D, RBC 4.97, Hgb 13.5 L, Hct 40.3 L, MCV 81.1, MCH 27.2, MCHC 33.5, RDW 14.1, Plt Count 204, MPV 10.5 07/26/18 02:18: Alcohol, Quantitative < 10 07/26/18 02:18: Sodium 137, Potassium 4.2, Chloride 105, Carbon Dioxide 25, Anion Gap 11, BUN 18, Creatinine 0.7 L, Est GFR ( Amer) > 60, Est GFR (Non-Af Amer) > 60, Random Glucose 93, Calcium 9.1, Total Bilirubin 0.4, AST 53, ALT 41, Alkaline Phosphatase 98, Total Protein 7.6, Albumin 4.0, Globulin 3.6, Albumin/Globulin Ratio 1.1 Vital Signs Temp Pulse Pulse Pulse Resp BP Pulse Ox 07/26/18 16:00 74 149/85 07/26/18 12:00 87 87 18 07/26/18 10:14 98 F 82 18 130/66 97 07/26/18 10:00 98.2 F 87 18 113/71 07/26/18 09:25 98.0 F 76 18 135/69 96 07/26/18 03:00 97.9 F 89 16 138/72 95 07/26/18 00:48 98.1 F 91 H 18 146/80 95 EKG within normal limits. 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 It is a patient responsibility to follow up with outpatient clinic, PMD as well as specialists. In case patient will need to obtain results of studies pending at discharge, patient was provided with contact information of Psychiatric Inpatient unit [phone] as well as Medical Record Department [phone], as well as [facility] team [phone]. pt denied smoking Naltrexone treatment not indicated for PCP use Counseling about PCP cessation provided AA meetings treatment program information was provided by the [facility] pt was provided with prescriptions (see medication reconciliation form) Pt was educated about safety plan in case of worsening of symptoms or in case of suicidal or homicidal ideation call 911 or go to the nearest ER, also was educated to take meds as prescribed and stay away from drugs, pt verbalized understanding. Prescriptions/Medication Reconciliation: Divalproex [Depakote ER] 500 mg PO AMHS #30 ter OLANZapine [Zyprexa Zydis] 5 mg PO TID #45 odt traZODone [Desyrel] 100 mg PO HS #14 tab - Smoking Cessation Smoking Cessation Medication prescribed: No Reason for not providing: pt denied smoking - Antipsychotic Medications Pt discharged on 2 or more routine antipsychotic medications: No
== END 2018-07-29 11:47 | disposition left against medical advice (07) | DRG 885 ==
LOC: ED 00:18 → ERH 08:52 → PSYC 10:20
PROVIDERS: ADMIT Psychiatry & Neurology Psychiatry; ATTEND Psychiatry & Neurology Psychiatry
DX: F25.0 Schizoaffective disorder, bipolar type (principal); F11.20 Opioid dependence, uncomplicated; F16.159 Hallucinogen abuse with hallucinogen-induced psychotic disorder, unspecified; F15.10 Other stimulant abuse, uncomplicated; G47.00 Insomnia, unspecified; I10 Essential (primary) hypertension; J44.9 Chronic obstructive pulmonary disease, unspecified; Z59.0 Homelessness; Z91.14 Patient's other noncompliance with medication regimen

== ENCOUNTER 2018-08-06 14:21 | Emergency (ER) | payer OTHER ==
[2018-08-06 14:44] VITALS: BMI 30.8
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
[2018-08-06 15:14] VITALS: BP 138/84; PULSE 84; RESP 20; TEMP 98.4; O2SAT 97
== END 2018-08-06 15:30 | disposition home or self-care (01) ==
LOC: ED 14:21
DX: Z77.098 Contact with and (suspected) exposure to other hazardous, chiefly nonmedicinal, chemicals (principal); F17.210 Nicotine dependence, cigarettes, uncomplicated; F25.9 Schizoaffective disorder, unspecified; F31.9 Bipolar disorder, unspecified

== ENCOUNTER 2018-10-04 22:34 | Emergency (ER) | payer OTHER ==
[2018-10-04 22:36] VITALS: BMI 29.5
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
[2018-10-05 01:18] LABS: HEMOGLOBIN 12.4 g/dL (14.0-18.0); MEAN CELL VOLUME 80.5 fl (80.0-105.0); MEAN CORPUSCULAR HEMOGLOBIN 26.9 pg (25.0-35.0); MEAN CORPUSCULAR HGB CONC 33.4 g/dl (31.0-37.0); MEAN PLATELET VOLUME 10.3 fl (7.0-11.0); RBC 4.61 10^6/uL (3.5-6.1); WHITE BLOOD COUNT 11.5 10^3/uL (4.5-11.0)
[2018-10-05 01:23] LABS: ALB/GLOB RATIO 1.2 (1.1-1.8); ALBUMIN 4.2 g/dL (3.0-4.8); ALT/SGPT 53 U/L (7-56); AST/SGOT 71 U/L (17-59); BLOOD UREA NITROGEN 18 mg/dL (7-21); GFR NON-AFRICAN AMERICAN > 60
[2018-10-05 01:32] LABS: BARBITURATES, UR NEGATIVE (NEGATIVE); BENZODIAZEPINES, UR NEGATIVE (NEGATIVE); OPIATES, UR NEGATIVE (NEGATIVE); PHENCYCLIDINE, UR POSITIVE (NEGATIVE)
[2018-10-05 01:35] VITALS: TEMP 98.5
[2018-10-05 05:49] VITALS: O2SAT 100
--- NOTE | 2018-10-05 08:05 | RAD ---
Date of service: 10/05/2018 HISTORY: medical clearance COMPARISON: 07/26/2018 TECHNIQUE: 1 view obtained. FINDINGS: LUNGS: No active pulmonary disease. PLEURA: No significant pleural effusion identified, no pneumothorax apparent. CARDIOVASCULAR: No aortic atherosclerotic calcification present. Normal cardiac size. No pulmonary vascular congestion. OSSEOUS STRUCTURES: No significant abnormalities. VISUALIZED UPPER ABDOMEN: Normal. OTHER FINDINGS: None. IMPRESSION: No active disease.
--- NOTE | 2018-10-05 08:49 | ED PDOC ---
Physical Exam Vital Signs Temp Pulse Resp BP Pulse Ox 10/05/18 08:15 80 19 139/59 L 100 10/05/18 03:00 83 18 118/83 100 10/04/18 23:30 98.5 F 92 H 18 125/59 L 96 Medical Decision Making ED Course and Treatment: 10/05/18 07:00 Case endorsed to me by Dr. Francois pending sobriety, PES evaluation, and reassess/disposition. Patient currently stable. Patient in PD custody. 10/05/18 07:30 Patient evaluate by PES worker. Patient still appears to be under the influence. Patient will be reevaluated later today. 10/05/18 09:33 Patient cleared by PES with diagnosis of schizoaffective disorder. Patient will be discharged. - Lab Interpretations Lab Results: Total Bilirubin 0.7 mg/dL (0.2-1.3) 10/05/18 00:52 AST 71 U/L (17-59) H D 10/05/18 00:52 ALT 53 U/L (7-56) 10/05/18 00:52 Alkaline Phosphatase 70 U/L (38-126) 10/05/18 00:52 Total Protein 7.8 g/dL (5.8-8.3) 10/05/18 00:52 Albumin 4.2 g/dL (3.0-4.8) 10/05/18 00:52 Globulin 3.6 gm/dL 10/05/18 00:52 Albumin/Globulin Ratio 1.2 (1.1-1.8) 10/05/18 00:52 - RAD Interpretation Radiology Orders: 10/04/18 22:38 CHEST PORTABLE [RAD] Stat - Medication Orders Current Medication Orders: Discontinued Medications Haloperidol Lactate (Haldol) 5 mg IM STAT STA; Protocol Stop: 10/04/18 22:40 Last Admin: 10/04/18 22:40 Dose: 5 mg IM Administration Charges Document 10/04/18 22:40 AD (Rec: 10/05/18 01:30 AD [id number]) Injection Site MAR Injection Site Left Deltoid Charges for Administration # of IM Administrations 1 Lorazepam (Ativan) 2 mg IM ONCE ONE Stop: 10/04/18 22:40 Last Admin: 10/04/18 22:40 Dose: 2 mg IM Administration Charges Document 10/04/18 22:40 AD (Rec: 10/05/18 01:30 AD [id number]) Injection Site MAR Injection Site Left Deltoid Charges for Administration # of IM Administrations 1 Ziprasidone (Geodon Inj) 20 mg IM STAT STA; Protocol Stop: 10/04/18 22:37 Last Admin: 10/04/18 22:36 Dose: 20 mg IM Administration Charges Document 10/04/18 22:36 AD (Rec: 10/05/18 01:30 AD [id number]) Injection Site MAR Injection Site Right Vastus Lateralis Charges for Administration # of IM Administrations 1 - Scribe Statement The provider has reviewed the documentation as recorded by the Travonibelai Camarena Provider Scribe Attestation: All medical record entries made by the Scribe were at my direction and personally dictated by me. I have reviewed the chart and agree that the record accurately reflects my personal performance of the history, physical exam, medical decision making, and the department course for this patient. I have also personally directed, reviewed, and agree with the discharge instructions and disposition. Disposition/Present on Arrival - Present on Arrival Any Indicators Present on Arrival: No History of DVT/PE: No History of Uncontrolled Diabetes: No Urinary Catheter: No History of Decub. Ulcer: No History Surgical Site Infection Following: None - Disposition Have Diagnosis and Disposition been Completed?: Yes Diagnosis: Schizoaffective disorder, bipolar type, Substance-induced disorder Disposition: HOME/ ROUTINE Disposition Time: 09:30 Condition: IMPROVED Discharge Instructions (ExitCare): Schizoaffective Disorder (DC) Additional Instructions: SONU BROOKS, thank you for letting us take care of you today. The emergency medical care you received today was directed at your acute symptoms. If you were prescribed any medication, please fill it and take as directed. It may take several days for your symptoms to resolve. Return to the Emergency Department if your symptoms worsen, do not improve, or if you have any other problems. Please contact your doctor or call one of the physicians/clinics you have been referred to that are listed on the Patient Visit Information form that is included in your discharge packet. Bring any paperwork you were given at discharge with you along with any medications you are taking to your follow up visit. Our treatment cannot replace ongoing medical care by a primary care provider outside of the emergency department. Thank you for allowing the [facility] team to be part of your care today. Follow up with your primary care doctor this week for re-evaluation. PATIENT IS MEDICALLY AND PSYCHIATRICALLY CLEARED FOR INCARCERATION. Referrals: [facility], [Non-Staff] - Follow up with primary Forms: [employer] ([place]ian)
[2018-10-05 09:39] VITALS: BP 121/72; PULSE 84; RESP 17
--- NOTE | 2018-10-05 11:38 | CARD ---
APPROVED REPORT Date of service: 10/05/2018 EKG Measurement Heart [id number] <Conclusion> Normal sinus rhythm T wave abnormality, consider anterior ischemia Prolonged QT Abnormal ECG
== END 2018-10-05 10:00 | disposition home or self-care (01) ==
LOC: ED 22:34
DX: F25.0 Schizoaffective disorder, bipolar type (principal)
CPT/HCPCS: 71045; 80053; 85027; 90791; 93005; 96372; 99284; G0480; J1630; J2060; J3486

== ENCOUNTER 2018-10-16 21:04 | Emergency (ER) | payer OTHER ==
[2018-10-16 21:05] VITALS: BMI 29.5
[2018-10-16 21:35] VITALS: PULSE 78; TEMP 97.7; O2SAT 97
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
[2018-10-17 00:38] VITALS: BP 128/55; RESP 18
== END 2018-10-16 23:45 | disposition home or self-care (01) ==
LOC: ED 21:04
DX: M54.5 Low back pain (principal); Z48.00 Encounter for change or removal of nonsurgical wound dressing; F17.210 Nicotine dependence, cigarettes, uncomplicated; F20.9 Schizophrenia, unspecified
CPT/HCPCS: 96372; 99282; J1885